=== PATIENT | female | born 1950 | race Caucasian/White ===

== ENCOUNTER 2018-04-18 05:47 | Day surgery (SDC) | payer MEDICARE ==
[2018-04-18] MEDS ORDERED: DIPRIVAN 200 MG/20 ML IV ONE (05:48)
[2018-04-18] MEDS ORDERED: Lactated Ringers 1,000 ML IV SCH (06:30)
--- NOTE | 2018-04-18 08:40 | OP ---
SURGERY DATE/TIME: 04/18/2018 0743 PREOPERATIVE DIAGNOSIS: Screening colonoscopy. POSTOPERATIVE DIAGNOSIS: Sigmoid colon polyp. PROCEDURE: Colonoscopy. SURGEON: Pavan Macias M.D. ANESTHESIA: MAC by Miguel [place] CRNA. ESTIMATED BLOOD LOSS: Minimal. SPECIMENS: Hot forceps polypectomy from the sigmoid colon. DESCRIPTION OF PROCEDURE: After informed written consent was obtained, the patient was taken to the endoscopy suite. She underwent monitored anesthesia and was placed in left lateral decubitus position. A digital rectal exam showed normal sphincter tone and no internal lesions. The scope was inserted into the rectum and sequentially the entire colonic mucosa was traversed. The level of cecum was reached and verified with direct visualization of ileocecal valve. Upon withdrawal careful mucosal inspection revealed small sessile polyp in the sigmoid colon area. It was grasped with forceps and cauterized at the base removed in its entirety with complete removal of the lesion and good hemostasis. The polyp was sent for pathology testing. Upon further withdrawal, no other lesions were encountered. Prior to withdrawal retroflexion showed no internal lesions. The scope was removed and the patient was transferred to the recovery room in good condition. I have advised her to follow up in a week for pathology results.
[2018-04-18 08:47] VITALS: PULSE 90; O2SAT 100
[2018-04-18 09:04] VITALS: BP 132/81
== END 2018-04-18 09:05 | disposition home or self-care (01) ==
LOC: SDC 05:47
PROVIDERS: ATTEND Family Medicine
DX: Z12.11 Encounter for screening for malignant neoplasm of colon (principal); K63.5 Polyp of colon
CPT/HCPCS: 88305; J2704